=== PATIENT | female | born 1995 | race Caucasian/White ===

== ENCOUNTER 2016-07-02 11:54 | Emergency (ER) | payer OTHER ==
--- NOTE | 2016-07-02 12:10 | ER Document Report ---
ED Medical Screen (RME) - General Stated Complaint: POSSIBLE FLU Time seen by provider: 12:08 Mode of Arrival: Ambulatory Information source: Patient Notes: 21-year-old female complaining of malaise, fatigue, large cervical lymph nodes which are posterior, bodyaches, mild sore throat, no dysuria. She has been sick since 06-23-16. On menses nowl Nauseated. - Related Data Allergies/Adverse Reactions: No Known Allergies Allergy (Verified 07/02/16 12:05) Physical Exam - Vital signs Vitals: Temp Pulse Resp BP Pulse Ox 97.9 F 99 14 117/74 100 07/02/16 11:57 07/02/16 11:57 07/02/16 11:57 07/02/16 11:57 07/02/16 11:57 Course - Vital Signs Vital signs: Temp Pulse Resp BP Pulse Ox 97.9 F 99 14 117/74 100 07/02/16 11:57 07/02/16 11:57 07/02/16 11:57 07/02/16 11:57 07/02/16 11:57
[2016-07-02] MEDS ORDERED: ONDANSETRON 4 MG TAB.RAPDIS PO ONE (12:12)
--- NOTE | 2016-07-02 12:32 | ER Document Report ---
HPI - HPI Patient complains to provider of: cold symptoms Onset: Other - 9 days Onset/Duration: Persistent Quality of pain: Achy Pain Level: 3 Context: Patient presents complaining of chills, body aches with mild cough. Patient reports nausea and tender lymph nodes to left lateral side of neck. Patient denies any sore throat or ear pain. Patient reports left lower pelvic pain off and on that is currently resolved. Patient did recently start her menstrual cycle and does report a history of cramping with her menstrual cycle. Patient denies any urinary symptoms. Associated Symptoms: Body/muscle aches - Mild cough, Chills, Nonproductive cough , Nausea. denies: Chest pain, Earache, Fever, Vomiting, Rhinnorhea, Sore throat Exacerbated by: Denies Relieved by: Denies Similar symptoms previously: Yes Recently seen / treated by doctor: No - ROS ROS below otherwise negative: Yes Systems Reviewed and Negative: Yes All other systems reviewed and negative - CONSTITUTIONAL Constitutional: REPORTS: Chills. DENIES: Fever - EENT EENT: DENIES: Sore Throat, Ear Pain, Congestion - NEURO Neurology: DENIES: Headache - CARDIOVASCULAR Cardiovascular: DENIES: Chest pain - RESPIRATORY Respiratory: REPORTS: Coughing. DENIES: Trouble Breathing - GASTROINTESTINAL Gastrointestinal: REPORTS: Abdominal Pain - Currently resolved, Nausea. DENIES : Patient vomiting - URINARY Urinary: DENIES: Dysuria - REPRODUCTIVE LMP: 06/30/16 - MUSCULOSKELETAL Musculoskeletal: REPORTS: Extremity pain - Generalized body aches - DERM Skin Color: Normal, Kathryn Skin Problems: None Past Medical History - General Information source: Patient Last Menstrual Period: 06/30/2016 - Social History Smoking Status: Never Smoker Chew tobacco use (# tins/day): No Frequency of alcohol use: None Drug Abuse: None Occupation: router operator Lives with: Spouse/Significant other Family History: Reviewed & Not Pertinent Patient has suicidal ideation: No Patient has homicidal ideation: No - Medical History Medical History: Negative Surgical Hx: Negative Vertical Provider Document - CONSTITUTIONAL Agree With Documented VS: Yes Exam Limitations: No Limitations General Appearance: WD/WN, No Apparent Distress - INFECTION CONTROL TRAVEL OUTSIDE OF THE [place] IN LAST 30 DAYS: No - HEENT HEENT: Atraumatic, Normocephalic, Pharyngeal Erythema. negative: Pharyngeal Exudate, Tympanic Membrane Red, Tympanic Membrane Bulging - NECK Neck: Lymphadenopathy-Left - RESPIRATORY Respiratory: Breath Sounds Normal, No Respiratory Distress, Chest Non-Tender O2 Sat by Pulse Oximetry: 100 - CARDIOVASCULAR Cardiovascular: Regular Rate, Regular Rhythm, No Murmur - GI/ABDOMEN Gastrointestinal: Abdomen Soft, Abdomen Non-Tender, No Organomegaly - BACK Back: Normal Inspection. negative: CVA Tenderness-Right, CVA Tenderness-Left - MUSCULOSKELETAL/EXTREMETIES Musculoskeletal/Extremeties: MAEW, FROM - NEURO Level of Consciousness: Awake, Alert, Appropriate Motor/Sensory: No Motor Deficit - DERM Integumentary: Warm, Dry, No Rash Course - Vital Signs Vital signs: Temp Pulse Resp BP Pulse Ox 97.9 F 99 14 117/74 100 07/02/16 11:57 07/02/16 11:57 07/02/16 11:57 07/02/16 11:57 07/02/16 11:57 - Laboratory Laboratory results interpreted by me: 07/02/16 13:30 Labs- Entire Visit 07/02/16 07/02/16 12:50 12:50 Monotest POSITIVE H Group A Strep Rapid NEGATIVE 07/02/16 22:24 Discharge - Discharge Clinical Impression: Mononucleosis, Nausea Condition: Stable Disposition: HOME, SELF-CARE Instructions: Mononucleosis ([facility]), Antinausea Medication ([facility]) Additional Instructions: Return immediately for any new or worsening symptoms Followup with your primary care provider, call tomorrow to make a followup appointment No contact sports Prescriptions: Naproxen [Naprosyn 250 Nmg Tablet] 1 tab PO BID #14 tablet Ondansetron HCl [Zofran 4 mg Tablet] 1 - 2 tab PO Q6 PRN #15 tablet PRN Reason: Forms: Return to Work Referrals: [facility] [Provider Group] - Follow up as needed
[2016-07-02 13:47] VITALS: BP 116/69
== END 2016-07-02 13:45 | disposition home or self-care (01) ==
LOC: ER 11:54
DX: B27.90 Infectious mononucleosis, unspecified without complication (principal); R68.83 Chills (without fever); M79.1 Myalgia; R05 Cough; R11.0 Nausea
CPT/HCPCS: 99283; 36415; 87070; 87880; 87077; 86308; S0119